=== PATIENT | female | born 1965 | race Caucasian/White ===

== ENCOUNTER → 2016-09-28 | Outpatient (CLI) | payer OTHER ==
--- NOTE | 2016-09-28 09:49 | XR ---
EXAMINATION TYPE: XR foot complete RT DATE OF EXAM: 09/28/2016 9:39 AM COMPARISON: NONE HISTORY: Pain lateral right foot The osseous structures are intact and there is severe narrowing of the first MTP joint. Hypertrophic change of the Achilles insertion of the calcaneus noted.. There is no acute fracture or dislocation. IMPRESSION: 1. No acute fracture or dislocation. If symptoms persist, follow-up exam in 7 to 10 days could be ob tained.
== END | disposition home or self-care (01) ==
LOC: RADXRMAIN 09:26
PROVIDERS: ATTEND Internal Medicine
DX: M79.671 Pain in right foot (principal)

== ENCOUNTER → 2020-07-21 | Outpatient (CLI) | payer OTHER ==
[2020-07-21 16:08] VITALS: BP 111/85; PULSE 89; RESP 18; TEMP 98.6; BMI 39.1
--- NOTE | 2020-07-21 16:34 | P.HPBAR ---
Bariatric H&P - History & Physicial H&P Date: 07/21/20 History & Physicial: Visit/CC: initial visit Patient initial contact: Initial weight: Initial weight in pounds: Height: 5 ft 5 in Initial BMI: Last weight: Current weight: 106.594 kg Current weight in pounds: 235.00 Current BMI: 39.1 [place] body weight (based on NIH guidelines): 56.699 kg Excess body weight loss: The patient is a 55 year-old F who presents for Bariatric Assessment. She is an active smoker. Urine drug screen. Her father of smoking. 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 Smoking cessation. She is looking into the gastric bypass. Has GERD. She has diabetes with insulin. She has sleep apnea and is pending testing. No b lood clots. No stomach or esophageal cancer. Colonoscopy never. EGD is pending. Still has gallbladder. Tonsils were removed. No medications for weight loss. She has tried on her own for weight. EGD/Colonoscopy Past Medical History Past Medical History: Hyperlipidemia, Hypertension, Sleep Apnea/CPAP/BIPAP History of Any Multi-Drug Resistant Organisms: None Reported Past Surgical History: Tonsillectomy Past Anesthesia/Blood Transfusion Reactions: No Reported Reaction Past Psychological History: Anxiety, Depression Smoking Status: Current every day smoker Past Alcohol Use History: None Reported Past Drug Use History: None Reported Surgical - Exam Vital Signs Temp Pulse Resp BP 98.6 F 89 18 111/85 07/21/20 15:59 07/21/20 15:59 07/21/20 15:59 07/21/20 15:59 Bariatric Checklist Checklist: Plan: Checklist: EGD: 1. Hiatal hernia: 2. H. Pylori: HgbA1c: Vitamin D: Smoking: Primary care physician referral: Dr. Goss ([place]) Psychiatry clearance: Cardiology clearance: Sleep study: Diet journal: VTE risk score: VTE risk level: Rehab needs at discharge:
== END | disposition home or self-care (01) ==
LOC: BARWHC3 15:28
PROVIDERS: ATTEND Surgery Plastic and Reconstructive Surgery
DX: K21.9 Gastro-esophageal reflux disease without esophagitis (principal); E11.9 Type 2 diabetes mellitus without complications; G47.30 Sleep apnea, unspecified; F17.200 Nicotine dependence, unspecified, uncomplicated; Z90.89 Acquired absence of other organs; Z79.4 Long term (current) use of insulin
CPT/HCPCS: 99211

== ENCOUNTER → 2020-07-22 | Outpatient (CLI) | payer OTHER ==
[2020-07-22 15:25] LABS: MCH 30.1 pg (25.0-35.0); MCHC 31.9 g/dL (31.0-37.0); MCV 94.3 fL (80.0-100.0); Mean Platelet Volume 8.2; Platelet Count 301 k/uL (150-450); RBC 4.99 m/uL (3.80-5.40); RDW 13.1 % (11.5-15.5); WBC 8.3 k/uL (3.8-10.6)
[2020-07-22 20:00] LABS: INR 0.94 (0.90-1.11); Prothrombin Time 10.2 sec (9.9-11.9)
[2020-07-23 02:39] LABS: Ferritin 285.6 ng/mL (10.0-291.0)
[2020-07-23 02:40] LABS: Folate, Serum 5.4 ng/mL
[2020-07-23 02:56] LABS: % Iron Saturation 15.46 (12.00-45.00); African American GFR (CKD) 59.8 (60.0-200.0); Albumin 4.6 g/dL (3.80-4.90); Albumin/Globulin Ratio 1.92 (1.60-3.17); Anion Gap 7.5 mmol/L (4.00-12.00); BUN/Creat Ratio 27.5 Ratio (12.00-20.00); Calcium 10.3 mg/dL (8.7-10.3); Carbon Dioxide 23.5 mmol/L (21.6-31.8); Chol/HDL Ratio 5.26; Globulin 2.4 g/dL (1.6-3.3); Magnesium 1.4 mg/dL (1.5-2.4); Non-African American GFR(CKD) 51.6 (60.0-200.0); Phosphorus 3.8 mg/dL (2.4-5.1); Total Bilirubin 0.2 mg/dL (0.3-1.2)
[2020-07-23 04:16] LABS: Hemoglobin A1C 9.9 % (4.0-6.0)
[2020-07-23 13:18] LABS: Zinc, Serum 74 ug/dL (60-130)
[2020-07-25 02:35] LABS: Selenium 130 mcg/L (63-160)
[2020-07-26 07:06] LABS: Vitamin A 60 ug/dL (38-106)
[2020-07-26 07:57] LABS: Vit B1(Thiamine) 69 ug/L (38-122)
== END | disposition home or self-care (01) ==
LOC: LABWHC1 13:57
PROVIDERS: ATTEND Surgery Plastic and Reconstructive Surgery
DX: D50.8 Other iron deficiency anemias (principal); E66.01 Morbid (severe) obesity due to excess calories; E89.1 Postprocedural hypoinsulinemia; K90.89 Other intestinal malabsorption; E44.0 Moderate protein-calorie malnutrition; E55.9 Vitamin D deficiency, unspecified; K74.1 Hepatic sclerosis; N19 Unspecified kidney failure; K50.90 Crohn's disease, unspecified, without complications
CPT/HCPCS: 36415; 80053; 80061; 82306; 82525; 82607; 82728; 82746; 83036; 83540; 83550; 83721; 83735; 83970; 84100; 84134; 84255; 84425; 84443; 84590; 84630; 85027; 85610; 85730; 93005

== ENCOUNTER 2021-02-21 19:02 | Emergency (ER) | payer OTHER ==
[2021-02-21 19:14] VITALS: BP 107/71; PULSE 91; RESP 20; TEMP 98.3
--- NOTE | 2021-02-21 19:30 | ED ---
Upper Extremity HPI - General Chief Complaint: Extremity Injury, Upper Stated Complaint: left shoulder pain Time Seen by Provider: 02/21/21 19:15 Source: patient Mode of arrival: ambulatory Limitations: no limitations - History of Present Illness Initial Comments: Patient is a 55-year-old female presenting to the emergency Department with complaints of left shoulder pain 1 month. He denies any injuries or falls, no previous surgeries or fractures to the left shoulder. She describes the pain as starting in the front of her shoulder wraps around to the side and the back of the left shoulder even into the left side of her neck. She describes as tightness, pain increases with active range of motion. 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 She is right-hand dominant. She has been diagnosed with arthritis in that joint in the past. She denies any fevers or chills, no chest pain or short of breath, she has no further complaints. - Related Data Home Medications Medication Instructions Recorded Confirmed ALPRAZolam [Xanax] 0.5 mg PO TID PRN 07/21/20 07/21/20 Aspirin [Adult Low Dose Aspirin EC] 81 mg PO DAILY 07/21/20 07/21/20 Atorvastatin [Lipitor] 40 mg PO DAILY 07/21/20 07/21/20 Cetirizine HCl 10 mg PO DAILY 07/21/20 07/21/20 INSULIN ASPART (NovoLOG) [NovoLOG 40 unit SQ HS 07/21/20 07/21/20 (formulary)] Nortriptyline [Pamelor] 25 mg PO HS 07/21/20 07/21/20 Topiramate [Topamax] 100 mg PO DAILY 07/21/20 07/21/20 Zolpidem [Ambien] 10 mg PO HS PRN 07/21/20 07/21/20 buPROPion HCL [Wellbutrin XL] 150 mg PO DAILY 07/21/20 07/21/20 lisinopriL [Zestril] 20 mg PO DAILY 07/21/20 07/21/20 metFORMIN HCL 1,000 mg PO BID 07/21/20 07/21/20 Ergocalciferol [Vitamin D2 50,000 unit PO WEEKLY 08/02/20 08/02/20 (DRISDOL)] Allergies Allergy/AdvReac Type Severity Reaction Status Date / Time Penicillins Allergy Rash/Hives Verified 02/21/21 19:14 Review of Systems ROS Statement: Those systems with pertinent positive or pertinent negative responses have been documented in the HPI. ROS Other: All systems not noted in ROS Statement are negative. Past Medical History Past Medical History: Hyperlipidemia, Hypertension, Sleep Apnea/CPAP/BIPAP History of Any Multi-Drug Resistant Organisms: None Reported Past Surgical History: Tonsillectomy Past Anesthesia/Blood Transfusion Reactions: No Reported Reaction Past Psychological History: Anxiety, Depression Smoking Status: Current every day smoker Past Alcohol Use History: None Reported Past Drug Use History: None Reported General Exam - General Exam Comments Initial Comments: GENERAL: Patient is well-developed and well-nourished. Patient is nontoxic and in no acute distress. HEAD: Atraumatic, normocephalic. EYES: Pupils equal round and reactive to light, extraocular movements intact, sclera anicteric, conjunctiva are normal. Eyelids were unremarkable. NECK: Normal range of motion, supple without lymphadenopathy or JVD. No midline tenderness, some mild left cervical paraspinal tenderness. LUNGS: Unlabored respirations. Breath sounds clear to auscultation bilaterally and equal. No wheezes rales or rhonchi. HEART: Regular rate and rhythm without murmurs, rubs or gallops. ABDOMEN: Soft, nontender, normoactive bowel sounds. No guarding, no rebound. No masses appreciated. : Deferred MUSCULOSKELETAL: Patient has painful left shoulder active range of motion, limited with flexion and abduction. No swelling or deformity. No clubbing or cyanosis. NEUROLOGICAL: Patient is alert and oriented x 3. Normal speech, normal gait. SKIN: Warm, Dry, normal turgor, no rashes or lesions noted. Limitations: no limitations Course Vital Signs 02/21/21 19:11 Temperature 98.3 F Pulse Rate 91 Respiratory 20 Rate Blood Pressure 107/71 O2 Sat by Pulse 99 Oximetry Medical Decision Making - Medical Decision Making Patient is a 55-year-old female here with left shoulder pain 1 month. No injuries or trauma. She was concerned for arthritis. X-ray left shoulder shows no acute fractures dislocations, some mild calcified tendinitis. I discussed these findings with the patient. I recommended anti-inflammatory such as ibuprofen or Aleve, ice and heat to the area, limit repetitive motion. She can follow up with orthopedics. She is in agreement this plan of care and stable for discharge. She is requesting a work note, I did give her one. Disposition Clinical Impression: Left shoulder tendinitis Disposition: HOME SELF-CARE Condition: Stable Instructions (If sedation given, give patient instructions): Rotator Cuff Tendinitis (ED) Additional Instructions: Please return to the Emergency Department if symptoms worsen or any other concerns. Recommend heat and/or ice to the area, ibuprofen or Aleve for discomfort. Please follow up with orthopedics as discussed. Is patient prescribed a controlled substance at d/c from ED?: No Referrals: Nonstaff,Physician [Primary Care Provider] - 1-2 days Burt Teresa MD [STAFF PHYSICIAN] - 1-2 days Time of Disposition: 19:57
--- NOTE | 2021-02-21 19:44 | XR ---
EXAMINATION TYPE: XR shoulder complete LT DATE OF EXAM: 02/21/2021 COMPARISON: NONE HISTORY: Pain TECHNIQUE: 3 views FINDINGS: I see no fracture nor dislocation. Joint spaces are fairly normal. There is oval-shaped 5 m m calcification at the greater tuberosity. IMPRESSION: Soft tissue calcification consistent with calcific tendinitis. No fracture seen.
== END 2021-02-21 20:00 | disposition home or self-care (01) ==
LOC: EC 19:02
DX: M77.8 Other enthesopathies, not elsewhere classified (principal)
CPT/HCPCS: 99283

== ENCOUNTER → 2021-05-26 | Outpatient (CLI) | payer OTHER ==
--- NOTE | 2021-05-26 11:45 | MR ---
EXAMINATION TYPE: MR shoulder RT wo con DATE OF EXAM: 05/26/2021 COMPARISON: None HISTORY: Shoulder pain TECHNIQUE: Multiplanar, multisequence imaging of the right shoulder is performed without contrast. FINDINGS: There is motion artifact on the exam. Rotator Cuff: Abnormal increased signal is noted within the rotator cuff tendon. Along the anterior s urface there is a partial full-thickness tear at the supraspinatus insertion, coronal image #8, sagit ning image #5 and 4. There is some thickening of the rotator cuff tendon, partial undersurface tear ma y be present, coronal image #10 Acromioclavicular Joint: There is arthropathy which causes mass effect on the musculotendinous juncti on of supraspinatus. Some fluid signal is present in the subacromial subdeltoid bursa. Distal acromio n appears somewhat down turn, small distal acromial spur is present. Glenohumeral Joint: Intact and there is remodeling of the humeral head Labrum: The labrum appears grossly intact given limitation of non-arthrogram study. Biceps Tendon: The long head of biceps is in normal location within bicipital groove mother's of flui d signal along its course. Bone marrow signal: Pseudocysts are present in the humeral head. Other: No additional significant abnormality is appreciated. IMPRESSION: Partial rotator cuff tear with tendinosis, correlate for impingement.
--- NOTE | 2021-05-26 12:07 | MR ---
EXAMINATION TYPE: MR shoulder LT wo con DATE OF EXAM: 05/26/2021 COMPARISON: Plain films 02/21/2021 HISTORY: Shoulder pain TECHNIQUE: Multiplanar, multisequence imaging of the left shoulder is performed without contrast. FINDINGS: There is motion artifact present. Rotator Cuff: There is abnormal thickening and increased signal involving the rotator cuff tendon wit hout discrete tear, calcification noted consistent with calcific tendinitis Acromioclavicular Joint: There is arthropathy change present causing mass effect on the musculotendin ous junction of supraspinatus, and the distal acromion is down turn, the distal acromial spur Glenohumeral Joint: Intact Labrum: The labrum appears grossly intact given limitation of non-arthrogram study. Biceps Tendon: The long head of biceps is in normal location within bicipital groove, some fluid is p resent along the tendon. Bone marrow signal: Pseudocysts are present within the humeral head. Other: There is some fluid about the rotator cuff insertion, fluid in the subacromial subdeltoid burs a IMPRESSION: Relate to impingement, there is tendinosis, calcific tendinitis.
== END | disposition home or self-care (01) ==
LOC: RADMRIMAIN 07:28
PROVIDERS: ATTEND Internal Medicine
DX: M75.111 Incomplete rotator cuff tear or rupture of right shoulder, not specified as traumatic (principal); M67.813 Other specified disorders of tendon, right shoulder; M67.814 Other specified disorders of tendon, left shoulder; M75.32 Calcific tendinitis of left shoulder

== ENCOUNTER → 2021-08-05 | Outpatient (CLI) | payer OTHER ==
[2021-08-05 17:11] LABS: African American GFR (CKD) 67.4 (60.0-200.0); Anion Gap 9.8 mmol/L (10.00-18.00); BUN/Creat Ratio 17.59 Ratio (12.00-20.00); Calcium 9.4 mg/dL (8.7-10.3); Carbon Dioxide 24.8 mmol/L (20.0-27.5); Non-African American GFR(CKD) 58.2 (60.0-200.0); Potassium 4.2 mmol/L (3.5-5.5)
[2021-08-05 17:34] LABS: Urine Alcohol Negative (Negative); Urine Barbiturate Negative (Negative); Urine Cocaine Negative (Negative); Urine Methadone Negative (Negative); Urine Opiates Negative (Negative); Urine Phencyclidine Negative (Negative)
== END | disposition home or self-care (01) ==
LOC: LABWHC1 11:11
PROVIDERS: ATTEND Internal Medicine
DX: I10 Essential (primary) hypertension (principal); E11.9 Type 2 diabetes mellitus without complications; Z79.899 Other long term (current) drug therapy
CPT/HCPCS: 36415; 80048; 80306; 83036

== ENCOUNTER 2022-12-12 10:04 | Day surgery (SDC) | payer OTHER ==
[~2022-12-12 10:04] MED LIST: LACTATED RINGERS 1,000 ML IV SCH
[2022-12-12 10:42] VITALS: TEMP 96.8
[2022-12-12] MEDS ORDERED: LIDOCAINE 1% (10MG/ML) FOR IV START INTRADERMA ONE (10:43)
[2022-12-12 10:54] LABS: Glucose,Whole Blood 88 mg/dL (70-110)
[2022-12-12] MEDS ORDERED: PROPOFOL 10 MG/ML 20 ML VIAL IV ONE (11:06)
[2022-12-12] MEDS ORDERED: LIDOCAINE 2% INJ 20 MG/ML (2 ML VIAL) ONE (11:06)
--- NOTE | 2022-12-12 11:11 | P.GSHP ---
History of Present Illness H&P Date: 12/12/22 Chief Complaint: GERD, presurgical 57-year-old female here today for upper endoscopy. Patient previously seen in the bariatric clinic. Interested in sleeve gastrectomy. Mild reflux symptoms. Active tobacco user. 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, neck & back disc problems,was told has some anemia History of Any Multi-Drug Resistant Organisms: None Reported Past Surgical History: Tonsillectomy Additional Past Surgical History / Comment(s): D & C Past Anesthesia/Blood Transfusion Reactions: No Reported Reaction Smoking Status: Current every day smoker Medications and Allergies Home Medications Medication Instructions Recorded Confirmed Type Cetirizine HCl 10 mg PO HS 07/21/20 12/12/22 History Topiramate [Topamax] 100 mg PO BID 07/21/20 12/12/22 History lisinopriL [Zestril] 20 mg PO DAILY 07/21/20 12/12/22 History metFORMIN HCL [Glucophage] 1,000 mg PO BID 07/21/20 12/12/22 History Acetaminophen with Codeine 1 tab PO Q6H PRN 12/07/22 12/12/22 History [Tylenol #4 Tablet] Cholecalciferol [Vitamin D3 (25 25 mcg PO DAILY 12/07/22 12/12/22 History Mcg = 1000 Iu)] Dulaglutide [Trulicity] 0.75 mg SQ SA 12/07/22 12/12/22 History Ferrous Sulfate [Feosol] 325 mg PO DAILY 12/07/22 12/12/22 History Insulin Glargine,Hum.rec.anlog 50 units SQ HS 12/07/22 12/12/22 History [Lantus Solostar Pen] Levothyroxine Sodium [Synthroid] 25 mcg PO DAILY 12/07/22 12/12/22 History Turmeric Root Extract [Turmeric] 1,500 mg PO DAILY 12/07/22 12/12/22 History traZODone HCL [Desyrel] 100 mg PO HS 12/07/22 12/12/22 History Allergies Allergy/AdvReac Type Severity Reaction Status Date / Time Penicillins Allergy Rash/Hives Verified 12/12/22 10:39 Surgical - Exam Vital Signs Temp Pulse Resp BP Pulse Ox 96.8 F L 88 18 113/57 96 12/12/22 10:41 12/12/22 10:41 12/12/22 10:41 12/12/22 10:41 12/12/22 10:41 Physical exam: General: Well-developed, well-nourished HEENT: Normocephalic, sclerae nonicteric Abdomen: Nontender, nondistended Extremities: No edema Neuro: Alert and oriented Assessment and Plan (1) GERD (gastroesophageal reflux disease) Narrative/Plan: Will proceed with upper endoscopy Current Visit: Yes Status: Acute Code(s): K21.9 - GASTRO-ESOPHAGEAL REFLUX DISEASE WITHOUT ESOPHAGITIS SNOMED Code(s): 758123881
--- NOTE | 2022-12-12 11:19 | P.PCN ---
Date of Procedure: 12/12/22 Procedure(s) Performed: Preoperative Dx: GERD, presurgical Postoperative Dx: Mild gastritis Procedure: EGD with Bx Anesthesia: Sedation Endoscopist: Dr. Aguirre Specimens: Antrum Endoscopic Procedure: The patient was on the endoscopy table in the left decubitus position. The Olympus gastroscope was inserted into the oropharynx and passed under direct visualization to the region of the third portion of the duodenum. From that point the scope was slowly withdrawn inspecting all surfaces carefully. There were no neoplastic inflammatory or polypoid lesions throughout the duodenum. The pylorus was widely patent. The stomach was carefully inspected. There was mild gastritis present. A biopsy of the antrum took place to rule out H. pylori. Retroflexion revealed a normal hiatus. The esophagus was then carefully examined. There were no neoplastic inflammatory or polypoid lesions throughout the visualized esophagus. The patient was then taken to the recovery room in stable condition per anesthesia guidelines. Recommendations: Resume diet. Await biopsy results. Follow-up bariatric center.
[2022-12-12 11:32] VITALS: RESP 16
[2022-12-12 11:44] VITALS: BP 124/79; PULSE 79
== END 2022-12-12 11:55 | disposition home or self-care (01) ==
LOC: ORWHC2ENDO 10:04
PROVIDERS: ATTEND Surgery
DX: K29.50 Unspecified chronic gastritis without bleeding (principal); K21.9 Gastro-esophageal reflux disease without esophagitis; E11.9 Type 2 diabetes mellitus without complications; E78.5 Hyperlipidemia, unspecified; I10 Essential (primary) hypertension; Z86.73 Personal history of transient ischemic attack (TIA), and cerebral infarction without residual deficits; D64.9 Anemia, unspecified; E03.9 Hypothyroidism, unspecified; F17.200 Nicotine dependence, unspecified, uncomplicated; Z79.84 Long term (current) use of oral hypoglycemic drugs; Z79.899 Other long term (current) drug therapy; Z79.890 Hormone replacement therapy; Z88.0 Allergy status to penicillin
CPT/HCPCS: 88305; 43239; J2704; J2001

== ENCOUNTER → 2022-12-26 | Outpatient (CLI) | payer OTHER | END | disposition home or self-care (01) | LOC: LABWHC1 10:54 | PROVIDERS: ATTEND Surgery | DX: Z71.51 Drug abuse counseling and surveillance of drug abuser (principal) | CPT/HCPCS: 80323 ==

== ENCOUNTER → 2023-01-15 | Outpatient (CLI) | payer OTHER ==
[2023-01-15 11:09] VITALS: BMI 38.6
== END ==
LOC: BARWHC3 08:31
PROVIDERS: ATTEND Surgery
DX: E66.01 Morbid (severe) obesity due to excess calories (principal); Z68.38 Body mass index [BMI] 38.0-38.9, adult; Z71.3 Dietary counseling and surveillance; Z88.0 Allergy status to penicillin
CPT/HCPCS: 97804

== ENCOUNTER → 2023-01-16 | Outpatient (CLI) | payer OTHER ==
[2023-01-16 14:10] VITALS: BP 104/69; PULSE 94; RESP 16; TEMP 98; BMI 38.8
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
== END ==
LOC: BARWHC3 13:55
PROVIDERS: ATTEND Surgery
DX: E66.01 Morbid (severe) obesity due to excess calories (principal); Z68.38 Body mass index [BMI] 38.0-38.9, adult; Z98.84 Bariatric surgery status; I25.2 Old myocardial infarction; Z86.718 Personal history of other venous thrombosis and embolism; I26.99 Other pulmonary embolism without acute cor pulmonale; Z88.0 Allergy status to penicillin
CPT/HCPCS: 99211

== ENCOUNTER → 2023-01-27 | Outpatient (CLI) | payer OTHER ==
[2023-01-28 00:02] LABS: Basophils # (A) 0.06 X 10*3/uL (0.00-0.10); Basophils % (A) 0.7 %; Eosinophils # (A) 0.31 X 10*3/uL (0.04-0.35); Eosinophils % (A) 3.7 %; HCT 45.8 % (37.2-46.3); HGB 14.7 d/dL (12.0-15.0); Lymphocytes # (A) 2.82 X 10*3/uL (0.90-5.00); Lymphocytes % (A) 33.9 %; MCH 30.6 pg (27.0-32.0); MCHC 32.1 d/dL (32.0-37.0); MCV 95.2 FL (80.0-97.0); Mean Platelet Volume 11.3 FL (9.5-12.2); Monocytes # (A) 0.63 X 10*3/uL (0.20-1.00); Monocytes % (A) 7.6 %; NRBC Per 100 WBC 0 X 10*3/uL (0.00-0.01); Neutrophils # (A) 4.49 X 10*3/uL (1.80-7.70); Neutrophils % (A) 53.9 %; Platelet Count 307 X 10*3/uL (140-440); RBC 4.81 X 10*6/uL (4.10-5.20); RDW 13.2 % (11.5-14.5); WBC 8.33 X 10*3/uL (4.50-10.00)
[2023-01-28 08:11] LABS: Blood Urea Nitrogen 22.9 mg/dL (9.0-27.0); Calcium 9.5 mg/dL (8.7-10.3); Carbon Dioxide 19.4 mmol/L (21.6-31.8); Chloride 104 mmol/L (96-109); Glucose 161 mg/dL (70-110); Potassium 4.6 mmol/L (3.5-5.5); Sodium 140 mmol/L (135-145)
== END | disposition home or self-care (01) ==
LOC: LABPAT 09:04
PROVIDERS: ATTEND Orthopaedic Surgery Hand Surgery
DX: Z01.812 Encounter for preprocedural laboratory examination (principal); G56.02 Carpal tunnel syndrome, left upper limb; R94.31 Abnormal electrocardiogram [ECG] [EKG]
CPT/HCPCS: 36415; 80048; 85025; 93005

== ENCOUNTER 2023-01-31 08:47 | Day surgery (SDC) | payer OTHER ==
--- NOTE | 2023-01-30 12:44 | P.HPOR ---
History of Present Illness H&P Date: 01/30/23 Subjective: This is a 57 year old female that presents today for initial evaluation regarding a several year history of bilateral hand numbness, tingling and weakness. Patient states the right side is slightly worse than the left. She's been seen by [place] neurologists and has had a right carpal tunnel steroid injection approximately one and a half months ago and noticed no relief.She states her symptoms are worse at nighttime. She has tried bracing as well with little relief. She states her numbness involves the entire hand. Physical Examination: LUE: AIN/PIN/Radial/Ulnar/Median motor intact. Radial/Ulnar/Median SILT. 2+/4 Radial/Ulnar pulses palpated. 5/5 APB, 5/5 FDI. Negative Finkelsteins, negative CMC grind, positive Durkan's compression. RUE: AIN/PIN/Radial/Ulnar/Median motor intact. Radial/Ulnar/Median SILT. 2+/4 Radial/Ulnar pulses palpated. 5/5 APB, 5/5 FDI. Negative Finkelsteins, negative CMC grind, positive Durkan's compression. EMG and nerve conduction velocity testing performed on 11/13/2022 demonstrates severe left and moderate right carpal tunnel syndrome. Impression: 1.)B/L Carpal tunnel syndrome Plan: Diagnosis and treatment options were discussed with the patient. She has failed conservative treatment for bilateral carpal tunnel syndrome. I recommend staged endoscopic versus open carpal tunnel surgery, starting with the left side first. Risks and benefits of surgery including bleeding, infection, damage to surrounding tissue, need for further surgery, possible need to convert to open procedure, residual numbness were discussed and the patient wished to go forward with surgery. CC:Dr. 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, neck & back disc problems,was told has some anemia, now its good,, tendonitis and arthritis in both arms History of Any Multi-Drug Resistant Organisms: None Reported Past Surgical History: Tonsillectomy Additional Past Surgical History / Comment(s): D & C Past Anesthesia/Blood Transfusion Reactions: No Reported Reaction Smoking Status: Current every day smoker - Past Family History Mother Family Medical History: Diabetes Mellitus Additional Family Medical History / Comment(s): kidney failure Father Family Medical History: Cancer, COPD, Diabetes Mellitus Additional Family Medical History / Comment(s): colon cancer Medications and Allergies Home Medications Medication Instructions Recorded Confirmed Type Topiramate [Topamax] 100 mg PO BID 07/21/20 01/26/23 History lisinopriL [Zestril] 20 mg PO DAILY 07/21/20 01/26/23 History metFORMIN HCL [Glucophage] 1,000 mg PO BID 07/21/20 01/26/23 History Acetaminophen with Codeine 1 tab PO Q6H PRN 12/07/22 01/26/23 History [Tylenol #4 Tablet] Cholecalciferol [Vitamin D3 (25 25 mcg PO DAILY 12/07/22 01/26/23 History Mcg = 1000 Iu)] Dulaglutide [Trulicity] 1.5 mg SQ SA 12/07/22 01/26/23 History Ferrous Sulfate [Feosol] 325 mg PO DAILY 12/07/22 01/26/23 History Insulin Glargine,Hum.rec.anlog 50 units SQ HS 12/07/22 01/26/23 History [Lantus Solostar Pen] Levothyroxine Sodium [Synthroid] 25 mcg PO DAILY 12/07/22 01/26/23 History Turmeric Root Extract [Turmeric] 1,500 mg PO DAILY 12/07/22 01/26/23 History traZODone HCL [Desyrel] 100 mg PO HS 12/07/22 01/26/23 History Naproxen Sodium [Aleve] 220 mg PO DAILY PRN 01/26/23 01/26/23 History Allergies Allergy/AdvReac Type Severity Reaction Status Date / Time Penicillins Allergy Rash/Hives Verified 01/26/23 13:16 Physical Examination Osteopathic Statement: *. No significant issues noted on an osteopathic structural exam other than those noted in the History and Physical/Consult.
[~2023-01-31 08:47] MED LIST changes: +HYDROmorphone 0.5 MG/0.5 ML SYRINGE IVP PRN; +ONDANSETRON 4 MG/2 ML VIAL IVP PRN
[2023-01-31 09:01] VITALS: TEMP 97
[2023-01-31 09:08] LABS: Glucose,Whole Blood 111 mg/dL (70-110)
[2023-01-31] MEDS ORDERED: MIDAZOLAM 2 MG/2 ML VIAL ONE (09:22)
[2023-01-31] MEDS ORDERED: fentaNYL (PF) 50 MCG/ML 2 ML AMP ONE (09:22)
[2023-01-31] MEDS ORDERED: LIDOCAINE 2% INJ 20 MG/ML (2 ML VIAL) ONE (09:22)
[2023-01-31] MEDS ORDERED: PROPOFOL 10 MG/ML 20 ML VIAL IV ONE (09:22)
[2023-01-31] MEDS ORDERED: BUPIVACAINE (PF) 0.5% 30 ML VIAL SQ ONE (09:38)
[2023-01-31] MEDS ORDERED: LIDOCAINE 2% (PF) 20 MG/ML 10 ML AMP SQ ONE (09:38)
--- NOTE | 2023-01-31 09:52 | P.OP ---
Date of Procedure: 01/31/23 Preoperative Diagnosis: Left carpal tunnel syndrome Postoperative Diagnosis: Left carpal tunnel syndrome Procedure(s) Performed: Left endoscopic carpal tunnel release Anesthesia: MAC Surgeon: Pedro Barrera Senior Process Analyst #1: Ari Cash Estimated Blood Loss (ml): 0 Pathology: none sent Condition: stable Disposition: PACU Description of Procedure: This is a 57 year old female who presents today for a left endoscopic carpal tunnel release after having failed conservative treatment in the past. Risks and benefits of surgery were discussed with the patient including bleeding, damage to surrounding tissue, infection, need to convert to open procedure, need for further surgery as well as risks of anesthesia including pulmonary embolism and even and the patient wished to proceed with surgical intervention. The patients was seen in the pre-operative area by myself. Consent and H&P were completed and updated. The correct extremity was marked in the pre-operative area by myself and all other questions were answered. Operative Narrative: The patient was brought to the operating room by the department of anesthesia. They remained on the portable stretcher and a rolling hand table was brought to the side of the operative extremity. Pre-operative time out was performed indicating the correct patient, procedure and laterality. All in the room agreed. The patient was then drifted off to sleep by the department of anesthesia. MAC anesthesia was utilized and a 50:50 mixture of 1% Lidocaine and 0.5% bupivacaine was injected into the subcutaneous tissues of the palmar skin, 8ccs total. A nonsterile tourniquet was then applied to the operative extremity and the left upper extremity was then prepped and draped in normal sterile fashion. The operative extremity was the exsanguinated with an esmarch bandage and the tourniquet was inflated to 250mmHg. 15 blade scalpel was utilized to make a transverse incision on the palmar skin just ulnar to the palmaris longus tendon at the level of the distal wrist crease. Ragnell retractor was then placed radially and blunt dissection was performed to reveal the distal forearm fascia. This was lifted with fine Selwyn pick ups and Littler tenotomy scissors were then used to open the forearm fascia transversely and a double skin hook was then placed. Hamate finder was placed into the carpal tunnel and then sequential sized dilators were inserted followed by the synovial elevator to separate the flexor tenosynovium from the undersurface of the transverse carpal ligament and a washboard texture was felt. The MicroAire endoscopic carpal tunnel release system gun was the then inserted into the carpal tunnel hugging the deep portion of the transverse carpal ligament in line with the base of the ring finger. Transverse fibers of the ligament were directly visualized. Pressure was applied on the palm to reveal the distal extent of the transverse carpal ligament. The blade was then deployed and the distal half of the transverse carpal ligament was released. The scope was then brought distal again and remaining transverse fibers were incised with the blade. The proximal half of the transverse carpal ligament was then divided and again the scope was advanced distal and remaining transverse fibers were incised with the blade. The radial and ulnar leaflets were directly visualized and mobile consistent with complete release. Tenotomy scissors were then utilize d to release the remaining distal forearm fascia under direct visualization taking care to preserve the palmar cutaneous branch of the median nerve. Skin closure was performed with interrupted 4-0 Monocryl suture followed by Mastisol and steri strips. Sterile dressing was applied consisting of adaptic, 4x4s, Webril, and an lizbeth bandage. Tourniquet was let down and the hand immediately was well perfused. The patient was then woken by the department of anesthesia and transferred to PACU in stable condition. Ari HUTSON was present for the case in its entirety and assisted in major portions of the case and protection of vital neurovascular structures. Pedro Barrera D.O. Orthopedic Hand/Upper Extremity Surgeon
[2023-01-31 10:00] VITALS: RESP 16
[2023-01-31 10:13] VITALS: BP 102/71; PULSE 88
== END 2023-01-31 10:34 | disposition home or self-care (01) ==
LOC: OR 08:47
PROVIDERS: ATTEND Orthopaedic Surgery Hand Surgery
DX: G56.02 Carpal tunnel syndrome, left upper limb (principal); E11.9 Type 2 diabetes mellitus without complications; I10 Essential (primary) hypertension; E78.5 Hyperlipidemia, unspecified; E07.9 Disorder of thyroid, unspecified; F17.200 Nicotine dependence, unspecified, uncomplicated; Z86.73 Personal history of transient ischemic attack (TIA), and cerebral infarction without residual deficits; Z90.89 Acquired absence of other organs; Z98.890 Other specified postprocedural states; Z83.3 Family history of diabetes mellitus; Z80.0 Family history of malignant neoplasm of digestive organs; Z79.84 Long term (current) use of oral hypoglycemic drugs; Z79.899 Other long term (current) drug therapy
CPT/HCPCS: 29848; J2250; J2001 ×2; J2405; J3010; J2704

== ENCOUNTER 2023-02-14 06:18 | Day surgery (SDC) | payer OTHER ==
--- NOTE | 2023-02-13 13:26 | P.HPOR ---
History of Present Illness H&P Date: 02/13/23 Subjective: This is a 57 year old female that presents today for initial evaluation regarding a several year history of bilateral hand numbness, tingling and weakness. Patient states the right side is slightly worse than the left. She's been seen by [place] neurologists and has had a right carpal tunnel steroid injection approximately one and a half months ago and noticed no relief.She states her symptoms are worse at nighttime. She has tried bracing as well with little relief. She states her numbness involves the entire hand. Physical Examination: LUE: AIN/PIN/Radial/Ulnar/Median motor intact. Radial/Ulnar/Median SILT. 2+/4 Radial/Ulnar pulses palpated. 5/5 APB, 5/5 FDI. Negative Finkelsteins, negative CMC grind, positive Durkan's compression. RUE: AIN/PIN/Radial/Ulnar/Median motor intact. Radial/Ulnar/Median SILT. 2+/4 Radial/Ulnar pulses palpated. 5/5 APB, 5/5 FDI. Negative Finkelsteins, negative CMC grind, positive Durkan's compression. EMG and nerve conduction velocity testing performed on 11/13/2022 demonstrates severe left and moderate right carpal tunnel syndrome. Impression: 1.)B/L Carpal tunnel syndrome Plan: Diagnosis and treatment options were discussed with the patient. She has failed conservative treatment for bilateral carpal tunnel syndrome. I recommend staged endoscopic versus open carpal tunnel surgery, starting with the left side first followed by the right side. Risks and benefits of surgery including bleeding, infection, damage to surrounding tissue, need for further surgery, possible need to convert to open procedure, residual numbness were discussed and the patient wished to go forward with surgery. CC:Dr. 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" memory issues after History of Any Multi-Drug Resistant Organisms: None Reported Past Surgical History: Tonsillectomy Past Anesthesia/Blood Transfusion Reactions: No Reported Reaction Smoking Status: Current every day smoker Medications and Allergies Home Medications Medication Instructions Recorded Confirmed Type Topiramate [Topamax] 100 mg PO BID 07/21/20 02/07/23 History lisinopriL [Zestril] 20 mg PO DAILY 07/21/20 02/07/23 History metFORMIN HCL [Glucophage] 1,000 mg PO BID 07/21/20 02/07/23 History Acetaminophen with Codeine 1 tab PO Q6H PRN 12/07/22 02/07/23 History [Tylenol #4 Tablet] Cholecalciferol [Vitamin D3 (25 25 mcg PO DAILY 12/07/22 02/07/23 History Mcg = 1000 Iu)] Dulaglutide [Trulicity] 1.5 mg SQ SA 12/07/22 02/07/23 History Ferrous Sulfate [Feosol] 325 mg PO DAILY 12/07/22 02/07/23 History Insulin Glargine,Hum.rec.anlog 50 units SQ HS 12/07/22 02/07/23 History [Lantus Solostar Pen] Levothyroxine Sodium [Synthroid] 25 mcg PO DAILY 12/07/22 02/07/23 History Turmeric Root Extract [Turmeric] 1,500 mg PO DAILY 12/07/22 02/07/23 History traZODone HCL [Desyrel] 100 mg PO HS 12/07/22 02/07/23 History Allergies Allergy/AdvReac Type Severity Reaction Status Date / Time Penicillins Allergy Rash/Hives Verified 02/07/23 12:04 Physical Examination Osteopathic Statement: *. No significant issues noted on an osteopathic structural exam other than those noted in the History and Physical/Consult.
[~2023-02-14 06:18] MED LIST changes: +DEXAMETHASONE SOD PHOSPHATE 4 MG/ML 1 ML VIAL IV ONE; +LIDOCAINE 1% (10MG/ML) FOR IV START INTRADERMA PRN; +MIDAZOLAM 2 MG/2 ML VIAL IV PRN; +ONDANSETRON 4 MG/2 ML VIAL IVP ONE; -ONDANSETRON 4 MG/2 ML VIAL IVP PRN
[2023-02-14 06:53] VITALS: RESP 16; TEMP 97.4
[2023-02-14 07:03] LABS: Glucose,Whole Blood 113 mg/dL (70-110)
[2023-02-14] MEDS ORDERED: MIDAZOLAM 2 MG/2 ML VIAL ONE (07:16)
[2023-02-14] MEDS ORDERED: PROPOFOL 10 MG/ML 20 ML VIAL IV ONE (07:16)
[2023-02-14] MEDS ORDERED: fentaNYL (PF) 50 MCG/ML 2 ML AMP ONE (07:16)
[2023-02-14] MEDS ORDERED: LIDOCAINE 1% INJ 10MG/ML (20 ML MDV) SQ ONE (07:27)
[2023-02-14] MEDS ORDERED: BUPIVACAINE (PF) 0.5% 30 ML VIAL SQ ONE (07:27)
--- NOTE | 2023-02-14 07:52 | P.OP ---
Date of Procedure: 02/14/23 Preoperative Diagnosis: Right carpal tunnel syndrome Postoperative Diagnosis: Right carpal tunnel syndrome Procedure(s) Performed: Right endoscopic carpal tunnel release Anesthesia: MAC Surgeon: Pedro Barrera Estimated Blood Loss (ml): 0 Pathology: none sent Condition: stable Disposition: PACU Description of Procedure: This is a 57 year old female who presents today for a right endoscopic carpal tunnel release after having failed conservative treatment in the past. Risks and benefits of surgery were discussed with the patient including bleeding, damage to surrounding tissue, infection, need to convert to open procedure, need for further surgery as well as risks of anesthesia including pulmonary embolism and even and the patient wished to proceed with surgical intervention. The patients was seen in the pre-operative area by myself. Consent and H&P were completed and updated. The correct extremity was marked in the pre-operative area by myself and all other questions were answered. Operative Narrative: The patient was brought to the operating room by the department of anesthesia. They remained on the portable stretcher and a rolling hand table was brought to the side of the operative extremity. Pre-operative time out was performed indicating the correct patient, procedure and laterality. All in the room agreed. The patient was then drifted off to sleep by the department of anesthesia. MAC anesthesia was utilized and a 50:50 mixture of 1% Lidocaine and 0.5% bupivacaine was injected into the subcutaneous tissues of the palmar skin, 8ccs total. A nonsterile tourniquet was then applied to the operative extremity and the right upper extremity was then prepped and draped in normal sterile fashion. The operative extremity was the exsanguinated with an esmarch bandage and the tourniquet was inflated to 250mmHg. 15 blade scalpel was utilized to make a transverse incision on the palmar skin just ulnar to the palmaris longus tendon at the level of the distal wrist crease. Ragnell retractor was then placed radially and blunt dissection was performed to reveal the distal forearm fascia. This was lifted with fine Selwyn pick ups and Littler tenotomy scissors were then used to open the forearm fascia transversely and a double skin hook was then placed. Hamate finder was placed into the carpal tunnel and then sequential sized dilators were inserted followed by the synovial elevator to separate the flexor tenosynovium from the undersurface of the transverse carpal ligament and a washboard texture was felt. The MicroAire endoscopic carpal tunnel release system gun was the then inserted into the carpal tunnel hugging the deep portion of the transverse carpal ligament in line with the base of the ring finger. Transverse fibers of the ligament were directly visualized. Pressure was applied on the palm to reveal t he distal extent of the transverse carpal ligament. The blade was then deployed and the distal half of the transverse carpal ligament was released. The scope was then brought distal again and remaining transverse fibers were incised with the blade. The proximal half of the transverse carpal ligament was then divided and again the scope was advanced distal and remaining transverse fibers were incised with the blade. The radial and ulnar leaflets were directly visualized and mobile consistent with complete release. Tenotomy scissors were then utilized to release the remaining distal forearm fascia under direct visualization taking care to preserve the palmar cutaneous branch of the median nerve. Skin closure was performed with interrupted 4-0 Monocryl suture followed by Mastisol and steri strips. Sterile dressing was applied consisting of adaptic, 4x4s, Webril, and an lizbeth bandage. Tourniquet was let down and the hand immediately was well perfused. The patient was then woken by the department of anesthesia and transferred to PACU in stable condition. Pedro Barrera D.O. Orthopedic Hand/Upper Extremity Surgeon
[2023-02-14 08:00] LABS: Glucose,Whole Blood 109 mg/dL (70-110)
[2023-02-14 08:03] VITALS: BP 99/70; PULSE 80
== END 2023-02-14 08:28 | disposition home or self-care (01) ==
LOC: OR 06:18
PROVIDERS: ATTEND Orthopaedic Surgery Hand Surgery
DX: G56.01 Carpal tunnel syndrome, right upper limb (principal); E11.9 Type 2 diabetes mellitus without complications; I10 Essential (primary) hypertension; E78.5 Hyperlipidemia, unspecified; E07.9 Disorder of thyroid, unspecified; Z86.73 Personal history of transient ischemic attack (TIA), and cerebral infarction without residual deficits; F17.200 Nicotine dependence, unspecified, uncomplicated; F12.90 Cannabis use, unspecified, uncomplicated; F41.9 Anxiety disorder, unspecified; F32.A Depression, unspecified; F10.20 Alcohol dependence, uncomplicated; Z79.84 Long term (current) use of oral hypoglycemic drugs; Z79.85 Long-term (current) use of injectable non-insulin antidiabetic drugs; Z79.899 Other long term (current) drug therapy; Z79.890 Hormone replacement therapy; Z88.0 Allergy status to penicillin
CPT/HCPCS: 29848; J2250; J1100; J0690; J2405; J2001; J3010; J2704

== ENCOUNTER → 2023-04-27 | Outpatient (CLI) | payer OTHER ==
[2023-04-27 16:13] LABS: ALT 28 U/L (8-44); AST 14 U/L (13-35); Albumin 4.6 d/dL (3.8-4.9); Albumin/Globulin Ratio 1.84 Ratio (1.60-3.17); Alkaline Phosphatase 60 U/L (41-126); Blood Urea Nitrogen 21.9 mg/dL (9.0-27.0); Carbon Dioxide 22.2 mmol/L (21.6-31.8); Chloride 110 mmol/L (96-109); Globulin 2.5 d/dL (1.6-3.3); Glucose 85 mg/dL (70-110); Potassium 5.2 mmol/L (3.5-5.5); Sodium 141 mmol/L (135-145); Total Bilirubin <0.2 mg/dL (0.3-1.2); Total Protein 7.1 d/dL (6.2-8.2)
[2023-04-27 20:57] LABS: Basophils # (A) 0.04 X 10*3/uL (0.00-0.10); Basophils % (A) 0.5 %; Eosinophils # (A) 0.23 X 10*3/uL (0.04-0.35); HCT 45.7 % (37.2-46.3); HGB 14.9 d/dL (12.0-15.0); Lymphocytes # (A) 2.77 X 10*3/uL (0.90-5.00); Lymphocytes % (A) 36.3 %; MCHC 32.6 d/dL (32.0-37.0); MCV 95.2 FL (80.0-97.0); Mean Platelet Volume 11.3 FL (9.5-12.2); Monocytes # (A) 0.58 X 10*3/uL (0.20-1.00); Monocytes % (A) 7.6 %; NRBC Per 100 WBC 0 X 10*3/uL (0.00-0.01); Neutrophils # (A) 4.01 X 10*3/uL (1.80-7.70); Neutrophils % (A) 52.5 %; Platelet Count 327 X 10*3/uL (140-440); RDW 13.2 % (11.5-14.5); WBC 7.64 X 10*3/uL (4.50-10.00)
== END | disposition home or self-care (01) ==
LOC: LABWHC1 09:28
PROVIDERS: ATTEND Surgery
DX: Z01.812 Encounter for preprocedural laboratory examination (principal)
CPT/HCPCS: 36415; 80053; 85025

== ENCOUNTER → 2023-07-10 | Outpatient (CLI) | payer OTHER ==
--- NOTE | 2023-07-10 16:04 | P.BASOAP ---
Subjective Progress Note Date: 07/10/23 Principal diagnosis: Morbid obesity Patient returns for recheck. She was last seen in April. She has lost 13 pounds. She thinks her weight loss has slowed down recently though. Patient has heartburn when she drinks too much water. States that is not new for her. She is taking omeprazole. Thinks she may be eating a bit more lately. Objective - Vital Signs Vital signs: Vital Signs Temp 98.9 F 07/10/23 15:47 Pulse 97 07/10/23 15:47 Resp 16 07/10/23 15:47 BP 114/77 07/10/23 15:47 Pulse Ox FiO2 Intake & Output 07/09/23 07/10/23 07/10/23 18:59 06:59 18:59 Weight 88.904 kg - Exam Abdomen: Soft, nontender, nondistended Assessment/Plan (1) Obesity (BMI 35.0-39.9 without comorbidity) Narrative/Plan: 58-year-old female doing well after sleeve gastrectomy. Continue dietary and exercise regimen. Check 3 months labs next visit. Follow-up 6 weeks. Plan: Date: 07/10/23 Initial Weight: 101.151 kg Initial BMI: 37.7 Current Weight: 88.904 kg Current BMI: 33.1 Type of Surgery: Vertical Sleeve Gastrectomy Total Volume in Band: Previous Volume: Volume Removed: Volume Added: Band Size:
[2023-07-10 16:10] VITALS: BP 114/77; PULSE 97; RESP 16; TEMP 98.9; BMI 33.1
== END ==
LOC: BARWHC3 15:38
PROVIDERS: ATTEND Surgery
DX: E66.01 Morbid (severe) obesity due to excess calories (principal); Z68.33 Body mass index [BMI] 33.0-33.9, adult; Z71.3 Dietary counseling and surveillance; Z98.84 Bariatric surgery status; Z88.0 Allergy status to penicillin
CPT/HCPCS: 99211

== ENCOUNTER → 2023-08-28 | Outpatient (CLI) | payer OTHER ==
[2023-08-28 15:46] VITALS: BP 105/58; PULSE 78; RESP 16; TEMP 98; BMI 30.9
--- NOTE | 2023-08-28 16:01 | P.BASOAP ---
Subjective Progress Note Date: 08/28/23 Principal diagnosis: Morbid obesity Patient returns for reevaluation. Last seen in June. She is 4 months post sleeve gastrectomy. Still having some issues with poor protein intake. Recently found a protein drink that has 20 g of protein. She will try to do 2 of those per day. Having issues with intermittent vomiting and nausea. Seems to be worse with denser foods. She is off of her diabetic medications. 13 pounds weight loss since last visit. Started a new job. Objective - Vital Signs Vital signs: Vital Signs Temp 98 F 08/28/23 15:40 Pulse 78 08/28/23 15:40 Resp 16 08/28/23 15:40 BP 105/58 08/28/23 15:40 Pulse Ox FiO2 Intake & Output 08/27/23 08/28/23 08/28/23 18:59 06:59 18:59 Weight 83.007 kg - Exam Abdomen: Soft, nontender, nondistended Assessment/Plan (1) Obesity (BMI 35.0-39.9 without comorbidity) Narrative/Plan: Patient doing fairly well. Some vomiting issues and poor protein intake. Hopefully this gradually improves with her new protein drink. Try softer foods. Try avoiding eating later in the day. Continue antiacids. Check three-month labs. Follow-up 6 weeks. Plan: Date: 08/28/23 Initial Weight: 101.151 kg Initial BMI: 37.7 Current Weight: 83.007 kg Current BMI: 30.9 Type of Surgery: Vertical Sleeve Gastrectomy Total Volume in Band: Previous Volume: Volume Removed: Volume Added: Band Size:
[2023-08-28 18:41] LABS: HCT 41.7 % (37.2-46.3); HGB 13.7 g/dL (12.0-15.0); MCH 30.9 pg (27.0-32.0); MCHC 32.9 g/dL (32.0-37.0); MCV 94.1 FL (80.0-97.0); Mean Platelet Volume 11.2 FL (9.5-12.2); NRBC Per 100 WBC 0 X 10*3/uL (0.00-0.01); Platelet Count 294 X 10*3/uL (140-440); RBC 4.43 X 10*6/uL (4.10-5.20); RDW 13.6 % (11.5-14.5); WBC 8.76 X 10*3/uL (4.50-10.00)
[2023-08-29 02:45] LABS: ALT 15 U/L (8-44); AST 11 U/L (13-35); Albumin 4.2 g/dL (3.8-4.9); Albumin/Globulin Ratio 1.68 Ratio (1.60-3.17); Alkaline Phosphatase 67 U/L (41-126); BUN/Creat Ratio 19.15 Ratio (12.00-20.00); Blood Urea Nitrogen 24.9 mg/dL (9.0-27.0); Calcium 9.8 mg/dL (8.7-10.3); Carbon Dioxide 21.8 mmol/L (21.6-31.8); Chloride 109 mmol/L (96-109); Globulin 2.5 g/dL (1.6-3.3); Glucose 86 mg/dL (70-110); Iron 36 UG/DL (50-170); Potassium 4.2 mmol/L (3.5-5.5); Sodium 144 mmol/L (135-145); Total Bilirubin 0.2 mg/dL (0.3-1.2); Total Protein 6.7 g/dL (6.2-8.2)
== END ==
LOC: BARWHC3 15:32
PROVIDERS: ATTEND Surgery
DX: E66.01 Morbid (severe) obesity due to excess calories (principal); Z71.3 Dietary counseling and surveillance; Z68.35 Body mass index [BMI] 35.0-35.9, adult; Z88.0 Allergy status to penicillin
CPT/HCPCS: 84425; 80053; 82607; 82746; 83540; 85027; 82306; 97802; G0463; 99211

== ENCOUNTER → 2023-11-06 | Outpatient (CLI) | payer OTHER ==
[2023-11-06 16:03] VITALS: BP 97/64; PULSE 71; RESP 16; TEMP 97; BMI 28.2
--- NOTE | 2023-11-06 17:11 | P.BASOAP ---
Subjective Progress Note Date: 11/06/23 Principal diagnosis: Morbid obesity 58-year-old female returns for recheck. Last seen in August. Had labs drawn last visit. Iron low at 36. She has not been taking her vitamins. She still takes iron however. She has lost 16 pounds since her last visit. Says she is not drinking enough and also behind on protein. Patient says she has been off her omeprazole for 2 weeks. Objective - Vital Signs Vital signs: Vital Signs Temp 97 F L 11/06/23 15:51 Pulse 71 11/06/23 15:51 Resp 16 11/06/23 15:51 BP 97/64 11/06/23 15:51 Pulse Ox FiO2 Intake & Output 11/05/23 11/06/23 11/06/23 18:59 06:59 18:59 Weight 75.75 kg - Exam Abdomen: Soft, nontender, nondistended Assessment/Plan (1) Obesity (BMI 35.0-39.9 without comorbidity) Narrative/Plan: 58-year-old female doing fairly well after previous sleeve gastrectomy. Patient has had good weight loss. Continue monitoring off of omeprazole. Resume daily vitamins. Follow-up 6 weeks. Check lab work next visit. Plan: Date: 11/06/23 Initial Weight: 101.151 kg Initial BMI: 37.7 Current Weight: 75.75 kg Current BMI: 28.2 Type of Surgery: Vertical Sleeve Gastrectomy Total Volume in Band: Previous Volume: Volume Removed: Volume Added: Band Size:
== END ==
LOC: BARWHC3 15:38
PROVIDERS: ATTEND Surgery
DX: E66.9 Obesity, unspecified (principal); Z98.84 Bariatric surgery status; Z71.3 Dietary counseling and surveillance; Z68.35 Body mass index [BMI] 35.0-35.9, adult; Z88.0 Allergy status to penicillin
CPT/HCPCS: 99211

== ENCOUNTER → 2024-03-18 | Outpatient (CLI) | payer OTHER | LOC: BARWHC3 15:34 | PROVIDERS: ATTEND Surgery | CPT/HCPCS: 99211 ==

== ENCOUNTER → 2024-05-06 | Outpatient (CLI) | payer OTHER ==
[2024-05-06 16:00] VITALS: BP 120/76; PULSE 83; RESP 16; TEMP 98; BMI 26.9
--- NOTE | 2024-05-06 21:23 | P.BASOAP ---
Subjective Progress Note Date: 05/06/24 Principal diagnosis: Morbid obesity Patient returns for recheck. She is 1 year post leave gastrectomy at this time. Apparently recently started taking Ozempic. She is lost 3 pounds since her last visit. She is due for annual lab work. She has no heartburn symptoms. Takes antiacids daily. Objective - Vital Signs Vital signs: Vital Signs Temp 98 F 05/06/24 15:57 Pulse 83 05/06/24 15:57 Resp 16 05/06/24 15:57 BP 120/76 05/06/24 15:57 Pulse Ox FiO2 Intake & Output 05/06/24 05/06/24 05/07/24 06:59 18:59 06:59 Weight 72.121 kg - Exam Abdomen: Soft, nontender, nondistended Assessment/Plan (1) Obesity (BMI 35.0-39.9 without comorbidity) Narrative/Plan: Patient here for her annual visit. Slee performed lab April. Not sure why the patient started Ozempic but she seems to be tolerating that well currently. She takes antiacids daily. Will try every other day and the possibly stopping if tolerates. Patient is interested in seeing plastic surgery for abdominoplasty. This will be arranged. Check 1 year labs. Follow-up 6 months. Plan: Date: 05/06/24 Initial Weight: 101.151 kg Initial BMI: 37.7 Current Weight: 72.121 kg Current BMI: 26.9 Type of Surgery: Vertical Sleeve Gastrectomy Total Volume in Band: Previous Volume: Volume Removed: Volume Added: Band Size:
== END ==
LOC: BARWHC3 15:51
PROVIDERS: ATTEND Surgery
CPT/HCPCS: 99211

== ENCOUNTER → 2024-05-10 | Outpatient (CLI) | payer OTHER ==
[2024-05-10 13:28] LABS: HCT 44.9 % (37.2-46.3); HGB 15.3 g/dL (12.0-15.0); MCH 32.6 pg (27.0-32.0); MCHC 34.1 g/dL (32.0-37.0); MCV 95.5 FL (80.0-97.0); NRBC Per 100 WBC 0 X 10*3/uL (0.00-0.01); Platelet Count 313 X 10*3/uL (140-440); RDW 12.2 % (11.5-14.5); WBC 6.89 X 10*3/uL (4.50-10.00)
[2024-05-10 14:08] LABS: ALT 18 U/L (8-44); AST 16 U/L (13-35); Albumin 4.3 g/dL (3.8-4.9); Albumin/Globulin Ratio 1.65 Ratio (1.60-3.17); Alkaline Phosphatase 62 U/L (41-126); Calcium 9.7 mg/dL (8.7-10.3); Carbon Dioxide 22.8 mmol/L (21.6-31.8); Chloride 108 mmol/L (96-109); Globulin 2.6 g/dL (1.6-3.3); Glucose 101 mg/dL (70-110); Iron 54 UG/DL (50-170); Potassium 3.8 mmol/L (3.5-5.5); Sodium 142 mmol/L (135-145); Total Bilirubin 0.3 mg/dL (0.3-1.2); Total Protein 6.9 g/dL (6.2-8.2)
== END | disposition home or self-care (01) ==
LOC: LABWHC1 08:09
PROVIDERS: ATTEND Surgery
DX: E66.01 Morbid (severe) obesity due to excess calories (principal); E55.9 Vitamin D deficiency, unspecified; K90.89 Other intestinal malabsorption
CPT/HCPCS: 36415; 80053; 82306; 82607; 82746; 83540; 84425; 85027

== ENCOUNTER → 2024-07-09 | Outpatient (CLI) | payer OTHER ==
[2024-07-09 15:53] LABS: Basophils # (A) 0.07 X 10*3/uL (0.00-0.10); Basophils % (A) 0.7 %; Eosinophils # (A) 0.23 X 10*3/uL (0.04-0.35); Eosinophils % (A) 2.3 %; HCT 48.1 % (37.2-46.3); HGB 16.2 g/dL (12.0-15.0); Lymphocytes # (A) 2.47 X 10*3/uL (0.90-5.00); Lymphocytes % (A) 24.9 %; MCH 31.5 pg (27.0-32.0); MCHC 33.7 g/dL (32.0-37.0); MCV 93.4 FL (80.0-97.0); Mean Platelet Volume 10.9 FL (9.5-12.2); Monocytes # (A) 0.75 X 10*3/uL (0.20-1.00); Monocytes % (A) 7.6 %; NRBC Per 100 WBC 0 X 10*3/uL (0.00-0.01); Neutrophils # (A) 6.35 X 10*3/uL (1.80-7.70); Neutrophils % (A) 64.2 %; Platelet Count 339 X 10*3/uL (140-440); RBC 5.15 X 10*6/uL (4.10-5.20); RDW 12.7 % (11.5-14.5)
[2024-07-09 16:17] LABS: ALT 41 U/L (8-44); AST 22 U/L (13-35); Albumin 4.3 g/dL (3.8-4.9); Albumin/Globulin Ratio 1.72 Ratio (1.60-3.17); Alkaline Phosphatase 70 U/L (41-126); Blood Urea Nitrogen 18.2 mg/dL (9.0-27.0); Calcium 10.4 mg/dL (8.7-10.3); Carbon Dioxide 25.3 mmol/L (21.6-31.8); Chloride 108 mmol/L (96-109); Chol/HDL Ratio 8.92 Ratio; Globulin 2.5 g/dL (1.6-3.3); Glucose 93 mg/dL (70-110); Iron 101 UG/DL (50-170); LDL Cholesterol,Calculated 234.9 mg/dL (0.0-131.0); Potassium 4.4 mmol/L (3.5-5.5); Sodium 143 mmol/L (135-145); Total Bilirubin 0.3 mg/dL (0.3-1.2); Total Iron Binding Capacity 329 UG/DL (228-460); Total Protein 6.8 g/dL (6.2-8.2)
== END | disposition home or self-care (01) ==
LOC: LABWHC1 07:37
PROVIDERS: ATTEND Nurse Practitioner Family
DX: E11.8 Type 2 diabetes mellitus with unspecified complications (principal); E78.00 Pure hypercholesterolemia, unspecified; Z90.3 Acquired absence of stomach [part of]; Z98.84 Bariatric surgery status
CPT/HCPCS: 36415; 80053; 80061; 82728; 83036; 83540; 83550; 84443; 85025

== ENCOUNTER → 2024-09-16 | Outpatient (CLI) | payer OTHER ==
[2024-09-16 13:04] VITALS: BP 145/85; PULSE 83; RESP 16; TEMP 98.2; BMI 23.5
--- NOTE | 2024-09-16 13:30 | P.BASOAP ---
Subjective Progress Note Date: 09/16/24 Principal diagnosis: Nausea vomiting 59-year-old female known to our service. Underwent previous sleeve gastrectomy. Was doing well up until last Sunday. Began experiencing intractable vomiting. Lasted for about 48 hours. Seemed to improve after going to urgent care and be ing started on antiemetics and antibiotics for UTI. Patient's granddaughter was also sick and went to the hospital for stomach flu symptoms. Still having lower abdominal cramps and pain. Some upper abdominal pain as well. Does not feel bloated. Decreased bowel activity. No rectal bleeding. Family history of colon cancer in her father. She has never had a colonoscopy. No recent lab work. Remains on Ozempic called though has not taken it this week. She did have an episode of syncope on Sunday. Remains on antiacids. No heartburn symptoms. Objective - Vital Signs Vital signs: Vital Signs Temp 98.2 F 09/16/24 13:00 Pulse 83 09/16/24 13:00 Resp 16 09/16/24 13:00 BP 145/85 09/16/24 13:00 Pulse Ox FiO2 Intake & Output 09/15/24 09/16/24 09/16/24 18:59 06:59 18:59 Weight 63.049 kg - Exam Abdomen: Soft, nontender, nondistended Assessment/Plan (1) Intractable vomiting Narrative/Plan: 59-year-old female with intractable vomiting and abdominal pain. Rule out abdominal source of symptoms including diverticulitis and other pathology. Will order CT abdomen pelvis. Check CBC and CMP levels. Continue antiacids and antiemetics. Keep 6-month follow-up appointment. Plan: Date: 09/16/24 Initial Weight: 101.151 kg Initial BMI: 37.7 Current Weight: 63.049 kg Current BMI: 23.5 Type of Surgery: Vertical Sleeve Gastrectomy Total Volume in Band: Previous Volume: Volume Removed: Volume Added: Band Size:
[2024-09-16 19:16] LABS: HCT 47.7 % (37.2-46.3); HGB 15.9 g/dL (12.0-15.0); MCH 32.4 pg (27.0-32.0); MCHC 33.3 g/dL (32.0-37.0); MCV 97.1 FL (80.0-97.0); Mean Platelet Volume 11.1 FL (9.5-12.2); NRBC Per 100 WBC 0 X 10*3/uL (0.00-0.01); Platelet Count 327 X 10*3/uL (140-440); RBC 4.91 X 10*6/uL (4.10-5.20); RDW 13.2 % (11.5-14.5); WBC 10.71 X 10*3/uL (4.50-10.00)
[2024-09-16 19:39] LABS: ALT 16 U/L (8-44); AST 13 U/L (13-35); Albumin/Globulin Ratio 1.54 Ratio (1.60-3.17); Alkaline Phosphatase 66 U/L (41-126); BUN/Creat Ratio 28.55 Ratio (12.00-20.00); Blood Urea Nitrogen 31.4 mg/dL (9.0-27.0); Calcium 9.7 mg/dL (8.7-10.3); Carbon Dioxide 24.7 mmol/L (21.6-31.8); Chloride 104 mmol/L (96-109); Globulin 2.6 g/dL (1.6-3.3); Glucose 118 mg/dL (70-110); Potassium 4.3 mmol/L (3.5-5.5); Sodium 140 mmol/L (135-145); Total Bilirubin 0.4 mg/dL (0.3-1.2); Total Protein 6.6 g/dL (6.2-8.2)
== END ==
LOC: BARWHC3 12:41
PROVIDERS: ATTEND Surgery
DX: R11.10 Vomiting, unspecified (principal); Z68.23 Body mass index [BMI] 23.0-23.9, adult; Z88.0 Allergy status to penicillin
CPT/HCPCS: 80053; 85027; G0463; 99211

== ENCOUNTER → 2024-09-16 | Outpatient (CLI) | payer OTHER | END | disposition home or self-care (01) | LOC: LABWHC1 13:43 | PROVIDERS: ATTEND Surgery | DX: Z53.9 Procedure and treatment not carried out, unspecified reason (principal) ==